=== PATIENT | female | born 1995 | race African-American/Black ===

== ENCOUNTER 2022-04-22 08:49 | Emergency (ER) | payer OTHER, SELFPAY ==
--- NOTE | ~2022-04-22 | XR_ITS ---
EXAMINATION: XR chest 2V DATE: 04/22/2022 09:48 INDICATION: Left chest pain. TECHNIQUE: Frontal and lateral views of the chest were obtained. COMPARISON: Chest 2 views 05/07/2015 FINDINGS: There is mild scarring at the lung apices. No pleural effusion or pneumothorax. The heart s ize is normal. IMPRESSION: 1. Mild scarring at the lung apices. Reviewed, dictated and finalized at location A.
[2022-04-22 08:57] VITALS: BP 125/84; PULSE 81; RESP 18; TEMP 36.9; O2SAT 100
--- NOTE | 2022-04-22 09:00 | ECG_ITS ---
Measurements Intervals [place] Rate: 78 P: 31 CT: 132 QRS: -18 QRSD: 88 T: 9 QT: 367 QTc: 420 Interpretive Statements SINUS RHYTHM NORMAL ECG NO PREVIOUS ECG AVAILABLE FOR COMPARISON Electronically Signed On 04-22-2022 11:50:49 CDT by Martínez Gonzales D.O.
--- NOTE | 2022-04-22 09:23 | ED.CHESTPAIN ---
HPI - Chest Pain General Chief Complaint: Chest Pain Stated Complaint: CP Time Seen by Provider: 04/22/22 08:54 History of Present Illness HPI narrative: 26-year-old female presenting to the emergency department for evaluation of left-sided chest pain. Patient states the left-sided chest pain started yesterday while she was at work. Describes it as a sharp chest pain that is worsened with inspiration. Patient initially attributed this to her bra being too tight but states that symptoms persisted even after removing the bra. Patient states that the symptoms did persist throughout the night and did worsen again this morning at 5 AM. Patient denies any falls or injuries. Patient denies any coughs colds or fevers. Patient does not suspect that she is . Patient is on hormone therapy. She has no prior history of PE or DVT. Patient denies any history of cancer or long car rides/plane flights. Related Data Home Medications Medication Instructions Recorded Confirmed cholecalciferol (vitamin D3) 250 250 mcg PO WEEKLY 07/23/21 02/04/22 mcg (10,000 unit) capsule Allergies Allergy/AdvReac Type Severity Reaction Status Date / Time No Known Allergies Allergy Verified 02/04/22 15:48 Review of Systems Review of Systems: CONSTITUTIONAL: Denies fever, chills, or sweats. EYES: Denies visual changes, redness, or discharge. ENT: Denies rhinorrhea, congestion, sore throat, or otalgia. CARDIOVASCULAR: See HPI RESPIRATORY: Denies cough or dyspnea. GASTROINTESTINAL: Denies abdominal pain, nausea, vomiting, or diarrhea. GENITOURINARY: Denies dysuria or hematuria. SKIN: Denies rash or itching. MUSCULOSKELETAL: Denies back pain, joint pain, or myalgia. NEUROLOGIC: Denies headache, numbness, or weakness. [facility] Past Medical History Medical History (Updated 04/22/22 @ 12:43 by Pio Toribio MD) Eczema Encounter for insertion of mirena IUD 07/07/15 Encounter for IUD removal 12/18/20 mirena removal Pneumonia Remove/insert IUD 07/18/20 mirena removal/insertion Vaginal odor Family History Family History Mother Bipolar 1 disorder Alcohol drinking problem Social History Social History (Updated 02/04/22 @ 15:50 by KARY Keene) Smoking status: Never smoker Alcohol intake: never Substance use: never Substance use type: does not use Additional living arrangements comments: Additional occupation/education comments: advisor at [employer] Gender identity (if verbalized by the patient): Female Sexual Orientation (if Verbalized by the Patient): Straight or Heterosexual Exam Narrative: APPEARANCE: Well appearing, no pain, no distress, well-nourished. HEAD: normocephalic, atraumatic. EYES: PERRLA/EOMI, conjunctivae clear. NOSE: Normal no drainage NECK: Supple. No adenopathy, no masses. RESPIRATORY: Airway patent, respirations nonlabored. Clear to auscultation bilaterally, no rales, rhonchi, wheezing. CARDIOVASCULAR: Reproducible left-sided chest wall tenderness to palpation ABDOMINAL: Soft, nontender, nondistended, normal bowel sounds MUSCULOSKELETAL: Moves all extremities. Strength/ROM intact, No edema, No calf tenderness. NEURO: Alert. Cranial nerves II through XII intact. Grossly intact SKIN: Warm, dry. Normal Color PSYCHIATRIC: Normal affect/mood. Course Course Emergency Course: Patient had negative serial troponins. Patient was afebrile with no leukocytosis. Patient's CMP is within normal limits. Patient's D-dimer was not elevated. Patient's EKG showed normal sinus rhythm and chest x-ray showed no acute cardiopulmonary normality. Patient was updated the results of her work-up and was comfortable with the plan for discharge home. Suspect pleurisy as the underlying etiology of the patient's symptoms. Vital Signs Vital signs: Vital Signs Temperature 98.5 F 04/22/22 08:57 Pulse Rate 81 04/22/22 08:57 Respiratory Rate
[2022-04-22 09:34] LABS: Basophils Absolute Auto 0.1 K/mm3 (0.0-0.1); Basophils Percent Auto 0.7 % (0.2-1.2); Eosinophils Absolute Auto 0.1 K/mm3 (0-0.3); Eosinophils Percent Auto 0.8 % (0-4.4); Hematocrit 46.8 % (37.0-47.0); Hemoglobin 15.9 g/dL (12.0-15.0); Immature Granulocyte Absolute 0.01 K/mm3 (0.00-0.031); Immature Granulocyte Percent A 0.1 % (0-0.5); Lymphocytes Absolute Auto 1.76 K/mm3 (0.9-3.2); Lymphocytes Percent Auto 24.5 % (18.3-44.2); Mean Corpuscular Hemoglobin 29.3 pg (26-34); Mean Corpuscular Volume 86.2 fl (80-100); Mean Platelet Volume 9.1 fl (7.4-10.4); Monocytes Absolute Auto 0.7 K/mm3 (0.1-0.6); Neutrophils Absolute Auto 4.6 K/mm3 (1.3-6.7); Neutrophils Percent Auto 63.9 % (45.5-73.1); Platelet Count Result 276 k/mm3 (150-375); Red Blood Count 5.43 M/mm3 (4.2-5.4); Red Cell Distribution Width 11.4 % (11.5-14.5); White Blood Count 7.2 K/mm3 (4.5-10.0)
[2022-04-22 09:45] LABS: Alanine Aminotransferase 21 U/L (6-35); Albumin Level 5.1 g/dL (3.5-5.1); Alkaline Phosphatase 87 U/L (38-126); Anion Gap 13 mmol/L (8-16); Aspartate Amino Transferase 30 U/L (14-36); Bilirubin,Total 1.1 mg/dL (0.2-1.3); Blood Urea Nitrogen 13 mg/dL (7-17); Calcium 9.6 mg/dL (8.4-10.2); Carbon Dioxide 25 mmol/L (22-30); Chloride 99 mmol/L (98-107); Estimated Glomerular Filt Rate > 60; Glucose 83 mg/dL (65-110); Lipase 50 U/L (23-300); Sodium 137 mmol/L (137-145)
[2022-04-22 09:57] LABS: Troponin I < 0.012 ng/mL (0.000-0.034)
[2022-04-22] MEDS: ASPIRIN 81 MG CHEWABLE TABLET 324 MG PO (09:57)
[2022-04-22 11:36] LABS: Prothrombin Time 12.6 Seconds (11.1-14.7)
[2022-04-22 12:02] LABS: D Dimer < 0.27 ug/mL (<0.48)
--- NOTE | 2022-04-22 12:25 | PC.NURSE ---
pul ox applied prior to this time
[2022-04-22 12:31] LABS: Troponin I < 0.012 ng/mL (0.000-0.034)
[2022-04-22] MEDS: KETOROLAC 15 MG/ML VIAL (*BKC) IV PUSH (13:03)
[2022-04-22 13:05] VITALS: BP 127/87; PULSE 65; RESP 18; O2SAT 100
[2022-04-22 13:12] VITALS: PULSE 74
== END 2022-04-22 13:14 | disposition home or self-care (01) ==
PROVIDERS: Emergency Provider Emergency Medicine; PCP Family Medicine
DX: R09.1 Pleurisy (principal); Z87.01 Personal history of pneumonia (recurrent)
CPT/HCPCS: 36415; 71046; 80053; 83690; 84484; 85025; 85380; 85610; 85730; 93005; 96374; 99284; A9270; J1885

== ENCOUNTER 2023-02-17 18:20 | Inpatient (IN) | payer OTHER, SELFPAY ==
[2023-02-17 18:50] VITALS: BP 155/91; PULSE 68
[2023-02-17 19:00] VITALS: BP 146/97; PULSE 70
[2023-02-17 19:08] LABS: Basophils Percent Auto 0.4 % (0.2-1.2); Eosinophils Absolute Auto 0.1 K/mm3 (0-0.3); Eosinophils Percent Auto 0.7 % (0-4.4); Hematocrit 38.5 % (37.0-47.0); Hemoglobin 12.8 g/dL (12.0-15.0); Immature Granulocyte Absolute 0.06 K/mm3 (0.00-0.031); Immature Granulocyte Percent A 0.6 % (0-0.5); Lymphocytes Absolute Auto 1.54 K/mm3 (0.9-3.2); Lymphocytes Percent Auto 15.7 % (18.3-44.2); Mean Corpuscular HGB Conc 33.2 g/dl (32-36); Mean Corpuscular Volume 84.2 fl (80-100); Mean Platelet Volume 11.2 fl (7.4-10.4); Monocytes Absolute Auto 0.9 K/mm3 (0.1-0.6); Neutrophils Absolute Auto 7.2 K/mm3 (1.3-6.7); Neutrophils Percent Auto 73.6 % (45.5-73.1); Platelet Count Result 205 k/mm3 (150-375); Red Blood Count 4.57 M/mm3 (4.2-5.4); Red Cell Distribution Width 12.6 % (11.5-14.5); White Blood Count 9.8 K/mm3 (4.5-10.0)
[2023-02-17 19:09] LABS: Creatinine Urine 48.8 mg/dL; Total Protein Urine Random 26 mg/dL; Ur Ttl Prot Creatinine Ratio 0.53 mg/mg (0-0.20)
[2023-02-17 19:15] VITALS: BP 151/103; PULSE 80
[2023-02-17 19:17] LABS: Alanine Aminotransferase 15 U/L (6-35); Albumin Level 3.3 g/dL (3.5-5.1); Alkaline Phosphatase 228 U/L (38-126); Anion Gap 7 mmol/L (8-16); Aspartate Amino Transferase 21 U/L (14-36); Bilirubin,Total 0.3 mg/dL (0.2-1.3); Blood Urea Nitrogen 10 mg/dL (7-17); Calcium 8.7 mg/dL (8.4-10.2); Carbon Dioxide 20 mmol/L (22-30); Chloride 105 mmol/L (98-107); Estimated Glomerular Filt Rate > 60; Glucose 80 mg/dL (65-110); Sodium 132 mmol/L (137-145); Uric Acid 4.8 mg/dL (2.5-7.5)
[2023-02-17 19:30] VITALS: BP 147/96; PULSE 73
[2023-02-17 19:44] LABS: Appearance Urine Clear (Clear); Bacteria Urine None Seen /hpf; Bilirubin Urine Negative (Negative); Blood Urine Negative (Negative); Color Urine Yellow (Yellow); Glucose Urine UA Negative (Negative); Ketones Urine Negative (Negative); Leukocyte Esterase Ur Negative LEU/UL (NEGATIVE); Nitrate Urine Negative (Negative); Non Pathogenic Casts 0-2; Protein Urine Trace mg/dL (Negative); RBC Urine 0-2 /hpf (0-2); Specific Grav Ur 1.009 (1.001-1.035); Squamous Epithelial Cell Urine None seen /hpf (Few); Urobilinogen Urine 0.2 mg/dL (<2.0); WBC Urine 0-5 /hpf (0-3); pH Urine 6.5 (5.0-9.0)
[2023-02-17 19:45] VITALS: BP 142/102; PULSE 85
[2023-02-17 20:17] LABS: Add Urine Microscopic? YES
[2023-02-17] MEDS: DINOPROSTONE 10 MG VAG INSERT VAGINAL (22:59)
[2023-02-18] VITALS (190 sets, daily range): BP systolic 72–171; BP diastolic 37–145; PULSE 29–195; RESP 17–18; TEMP 36.4–37.4; O2SAT 83–100
--- NOTE | 2023-02-18 05:37 | LDADM ---
This patient, Pricilla Slater, was admitted to Labor/Delivery/Recovery 109 on 02/17/23 at 18:20. Plans for labor, pain management and were discussed with patient. Patient/family oriented to hospital policies and general routines including ID bracelet, bed and alarms, visiting hours, pain management, procedures, bathroom and other care routines, personal items, smoking policy, room service/diet and guest tray routines, security routines, and visiting hours. Patient/Family are encouraged to report perceived risks to care and to ask questions if they do not understand what they are told or what they should do. See OBIX for further documentation.
--- NOTE | 2023-02-18 06:01 | WPDANESEPP ---
Anes - Eval Pre Procedure Procedure: Labor epidural Date/Time: 02/18/23 06:01 Surgeon: Castro Preop Diagnosis: Abdominal pain with contractions Pre Op Diagnosis: Elevated BP Patient Data Age: 27 Gender: F Height: Weight: Last Vital Signs Pulse 81 02/18/23 06:00 BP 128/94 H 02/18/23 06:00 Allergies Allergy/AdvReac Type Severity Reaction Status Date / Time No Known Allergies Allergy Verified 02/17/23 17:30 Home Medications Medication Instructions Recorded Confirmed Type vitamins-iron fumarate 65 1 tablet PO DAILY 08/04/22 02/13/23 History mg iron-folic acid 1 mg tablet Laboratory Tests 02/17/23 02/17/23 18:50 22:48 WBC 9.8 K/mm3 (4.5-10.0) RBC 4.57 M/mm3 (4.2-5.4) Hgb 12.8 D g/dL (12.0-15.0) Hct 38.5 % (37.0-47.0) MCV 84.2 fl (80-100) MCH 28.0 pg (26-34) MCHC 33.2 g/dl (32-36) RDW 12.6 % (11.5-14.5) Plt Count 205 k/mm3 (150-375) MPV 11.2 H fl (7.4-10.4) Immature Gran % (Auto) 0.6 H % (0-0.5) Neut % (Auto) 73.6 H % (45.5-73.1) Lymph % (Auto) 15.7 L % (18.3-44.2) [place] % (Auto) 9.0 H % (2.6-8.5) Eos % (Auto) 0.7 % (0-4.4) Baso % (Auto) 0.4 % (0.2-1.2) Lymph # (Auto) 1.54 K/mm3 (0.9-3.2) [place] # (Auto) 0.9 H K/mm3 (0.1-0.6) Eos # (Auto) 0.1 K/mm3 (0-0.3) Baso # (Auto) 0.0 K/mm3 (0.0-0.1) Abs Immat Gran (auto) 0.06 H K/mm3 (0.00-0.031) Absolute Neuts (auto) 7.2 H K/mm3 (1.3-6.7) Absolute Nucleated RBC 0.0 K/mm3 (0.0-0.012) Nucleated RBC % 0.0 % (0.0-0.2) Sodium 132 L mmol/L (137-145) Potassium 4.0 mmol/L (3.4-5.0) Chloride 105 mmol/L (98-107) Carbon Dioxide 20 L mmol/L (22-30) Anion Gap 7 L mmol/L (8-16) BUN 10 mg/dL (7-17) Creatinine 0.50 L mg/dL (0.7-1.0) Estim Creat Clear Calc Not Reportable Estimated GFR > 60 (59 - ) Glucose 80 mg/dL (65-110) Uric Acid 4.8 mg/dL (2.5-7.5) Calcium 8.7 mg/dL (8.4-10.2) Total Bilirubin 0.3 mg/dL (0.2-1.3) AST 21 U/L (14-36) ALT 15 U/L (6-35) Alkaline Phosphatase 228 H U/L (38-126) Total Protein 6.0 L g/dL (6.3-8.2) Albumin 3.3 L g/dL (3.5-5.1) Urine Color Yellow (Yellow) Urine Appearance Clear (Clear) Urine pH 6.5 (5.0-9.0) Ur Specific [place] 1.009 (1.001-1.035) Urine Protein Trace mg/dL (Negative) Urine Glucose (UA) Negative mg/dL (Negative) Urine Ketones Negative mg/dL (Negative) Ur Blood (Man) Negative (Negative) Urine Nitrate Negative (Negative) Urine Bilirubin Negative (Negative) Urine Urobilinogen 0.2 mg/dL (<2.0) Ur Leukocyte Esterase Negative [place]/UL (NEGATIVE) Urine RBC 0-2 /hpf (0-2) Urine WBC 0-5 /hpf (0-3) Ur Squamous Epith Cells None seen /hpf (Few) Urine Bacteria None seen /hpf Urine Casts 0-2 U Random Total Protein 26 mg/dL Urine Creatinine 48.8 mg/dL Protein/Creat Ratio 2 0.53 H mg/mg (0-0.20) RPR Pending Blood Type B Positive Antibody Screen Negative : gestational age HCG: positive Patient hx anesthesia problems: none Family hx anesthesia problems: none Results Review: All pre-operative results and documents have been reviewed as part of the pre-operative evaluation. [facility] Past Medical History Medical History Abnormal glucose tolerance in Eczema Encounter for insertion of mirena IUD 07/07/15 Encounter for IUD removal 12/18/20 mirena removal Overweight (BMI 25.0-29.9) Pneumonia and not yet delivered Remove/insert IUD 07/18/20 mirena removal/inser
[2023-02-18] MEDS: OXYTOCIN 30 UNITS/NS 500 ML 30 UNITS/500 ML BAG 6 UNITS IV CONT (07:13)
[2023-02-18] MEDS: LACTATED RINGERS 1,000 ML 125 ML IV CONT ×2 (07:13→10:30)
[2023-02-18] MEDS: AMPICILLIN 2 GM/NS 100 ML 2 GM/100 ML BAG IVPB (07:14)
[2023-02-18] MEDS: PHENYLEPHRINE 1,000 MCG/10 ML SYRINGE 100 MCG IV PUSH ×2 (10:04→10:12)
[2023-02-18] MEDS: AMPICILLIN 1 GM/NS 50 ML 1 GM/50 ML BAG IVPB ×2 (11:00→15:18)
[2023-02-18] MEDS: SODIUM CHLORIDE 0.9% IV 300 ML 600 ML I-UTERINE (11:35)
[2023-02-18 14:34] LABS: Rapid Plasma Reagin Non-Reactive (NonReactive)
--- NOTE | 2023-02-18 18:56 | WPDHPUPDATE1 ---
History and Physical Update Update Date/Time: 02/18/23 18:56 History and Physical has been reviewed, including an updated exam of the patient. There are NO changes in the patient's condition. Risks, benefits, and alternatives have been discussed and questions answered. Patient agrees to proceed with procedure.
--- NOTE | 2023-02-18 18:56 | WPDOBADMIT ---
Obstetrics - Admit Note Admission Note: record reviewed. No pertinent additions to the history and/or any subsequent changes in the physical findings that are not consistent with the expected course of the were found. Additions to the history and/or subsequent changes in the physical findings follow. None.
--- NOTE | 2023-02-18 18:56 | PM.OBPRVD ---
OB - Delivery Note Procedure Events: Preeclampsia w/o severe features Induction method: Per Cervidil Protocol Delivery augmentation: Rupture of Membranes and Pitocin Delivery monitor: External FHT and Internal Uterine Route of delivery: Episiotomy description: None Laceration Description: None Specimen: Yes Quantitative Blood Loss (ml): 200 Anesthesia type: Epidural Disposition: Floor Complications: None Narrative: patient prepped and draped in usual manner for this procedure. Maternal expulsive efforts readily delivered vertex, rest of baby delivered without difficulty. Cord clamped cut baby was passed off the operative field. Placenta delivered spontaneously and uterus was well contracted. Cervix vagina vulva were inspected no significant lacerations or tears but some mild oozing from the vaginal wall which was rendered hemostatic with pressure and packing. At this point the procedure was considered terminated with immediate postoperative condition of mother baby both excellent. Baby Weeks of gestation at delivery: 37 gender: Male Weight (pounds): 6 Weight (ounces): 1 presentation: vertex position: Right Occiput Anterior Placenta delivery description: Spontaneous Cord Vessel Description: 3 Vessels score one minute: 5 score five minutes: 8 AMG Delivery Billing Delivery Delivery: Delivery Charge
[2023-02-18] MEDS: OXYTOCIN 30 UNITS/NS 500 ML 30 UNITS/500 ML BAG 125 UNITS IV CONT (19:18)
[2023-02-18] MEDS: LABETALOL HCL 100 MG TABLET PO (19:46)
[2023-02-18] MEDS: IBUPROFEN 600 MG TABLET PO (23:09)
[2023-02-19] VITALS (7 sets, daily range): BP systolic 117–136; BP diastolic 74–99; PULSE 64–93; RESP 14–18; TEMP 36.6–37.2; O2SAT 99–100
[2023-02-19 03:39] LABS: Hemoglobin 11.6 g/dL (12.0-15.0)
--- NOTE | 2023-02-19 08:31 | PM.OBDSVD ---
DS: Admitting Diagnosis Discharge Date 02/20/2023 Admitting Diagnosis 37 week intrauterine with mild preeclampsia DS: Discharge Diagnosis Discharge Diagnosis (1) , delivered: Code(s): O80 - Encounter for full-term uncomplicated delivery Status: Acute OB - DS: Summary OB Procedures : PIH Mgmt OB Procedures Intrapartum: Spontaneous Vag Delivery OB Procedures: : None Time Spent with Patient Time attestation: Total time spent providing and/or coordinating discharge services: DS: Data Data Completed and Pending Pending studies at discharge: Pending at discharge 02/18/23 18:46 Surgical [PTH] Routine Labs on day of discharge: Labs from last 24 hours 02/19/23 02/17/23 03:28 22:48 Hgb 11.6 L Hct 35.0 L RPR Non-reactive Discharge Plan Discharge Discharging Clinician: Gael Erazo Anticipated Discharge Date/Time: 02/20/23 08:32 Patient Disposition: Home, Self-Care Activity: as tolerated Diet: as tolerated Patient Instructions: Antibiotic Form Stand Alone Forms: General Discharge Information Follow-up/Referrals: Gael Erazo MD [Physician] - 1 Week Discharge Medications: New ibuprofen 600 mg Tablet 600 mg PO Q6H PRN (Reason: Cramping) Qty: 30 0RF labetalol 100 mg Tablet 100 mg PO Q12H Qty: 60 0RF Continued vit-iron fum-folic ac 65 mg iron- 1 mg tablet 1 tablet PO DAILY Date of admission: 02/17/23 18:20 Primary Care Provider: UNKNOWN,DOCTOR Admitting Provider: Gael Erazo Attending physician on admission: Gael Erazo Condition: Stable
[2023-02-19] MEDS: IBUPROFEN 600 MG TABLET PO (09:47)
[2023-02-19] MEDS: MULTIVIT/MIN/PREN/FOL AC/IRON TABLET 1 TAB PO (09:47)
[2023-02-19] MEDS: LABETALOL HCL 100 MG TABLET PO ×2 (09:48→21:46)
--- NOTE | 2023-02-19 10:17 | WPDANLDPN2 ---
Anes-Prog Note L&D Date/Time: 02/19/23 10:17 Comfortable throughout: labor and delivery Neuraxial method: epidural Epidural/Spinal procedure site: tender Neuro status: Neuro function grossly intact. Cardiovascular status: normal Respiratory status: normal Airway patency: baseline Mental status: baseline Post-Op hydration status: normal Vital Signs: Last Vital Signs Temp 37.0 C 02/19/23 04:13 Pulse 64 02/19/23 09:48 Resp 14 02/19/23 04:13 BP 127/82 02/19/23 04:13 Pulse Ox 99 02/19/23 04:13 O2 Del Method Room Air 02/18/23 22:05 Pain score (VAS): 2/10 I/O: Intake & Output 02/18/23 02/19/23 02/19/23 23:59 07:59 15:59 Intake Total 500 500 Output Total 2017 500 Balance -1518 0 Post-procedural complaints: none Patient feedback: Patient satisfied with anesthetic care.
--- NOTE | 2023-02-19 13:46 | PC.NURSE ---
1100 Introductions were made, then consulted with patient to assess needs related to . Mother led the conversation with her?plans to feed?her and the?experience so far. Mother works well with her with encouragement and education. Encouraged understanding of the benefits of skin to skin (demonstrating unwrapping and placing upright on her chest), stimulating with massage touch, changing positions to encourage wakefulness, how to watch for early feeding cues, responsive feeding, feeding on demand (aiming for 8-12 times in 24 hours, about every 2-3 hours), milk production, building/maintaining a milk supply, duration of feeding, signs of adequate intake/output and how to record on the feeding sheet. Reviewed positioning and ear, shoulder, hip alignment, supporting the breast to facilitate a deep latch, asymmetrical latch (off-center), leading with the chin with a big, open, wide gape and body close to mother. Infant latched optimally to the both breasts in football position although the cross cradle position was attempted. Infant fed successfully for 20 minutes. Education given to mother of how to visualize suck/swallow ratios and listen for drinking at the breast. was able to maintain latch without discomfort to mother. Nipple care reviewed with optimal latch and good positioning. Reminding mother of comfort measures of healing with a warm and wet washcloth to rinse breast, then leave open to air-dry as needed. Reviewed good handwashing when or touching the breast/nipples to prevent infection. Resources used to facilitate learning were used with the visual handouts and mom and baby guide. Mother voiced understanding of skin to skin, stimulating with massage touch, responsive feedings, hand expressed colostrum, talking to infant to encourage if it has been 2 -2.5 hours since the start of the last , to call if infant does not latch, or if there is discomfort with . Resources provided for inpatient/outpatient with business card, feeding sheet and the mom/baby guide. Parents voiced understanding of information, demonstrated learning and will call if there is a request for assistance. Reported to primary RN.
--- NOTE | 2023-02-19 15:58 | PCDIET ---
1500 Assisted mother with proper latch on techniques for 1500 feeding. Mother is able to independently latch infant with appropriate positioning/alignment. She denies any nipple discomfort and is responsively . is currently meeting outcomes for weight, output, jaundice and feeding frequencies of 8-12 times in 24 hours. Mother is encouraged to call for assistance if her infant doesn?t latch or there is discomfort with latching. Mother voiced understanding of information shared and the mom reminded of the mom/baby guide for an additional resource. Reported to the primary RN.
[2023-02-20] VITALS: BP 122/61; PULSE 75; RESP 18; TEMP 36.8
[2023-02-20] MEDS: IBUPROFEN 600 MG TABLET PO (04:44)
[2023-02-20] MEDS: ACETAMINOPHEN 325 MG TABLET 650 MG PO (04:45)
[2023-02-20 04:57] VITALS: BP 128/70; PULSE 63; RESP 18; TEMP 36.7
[2023-02-20 08:50] VITALS: BP 129/78; PULSE 73; RESP 16; TEMP 36.2; O2SAT 99
[2023-02-20 10:28] VITALS: PULSE 73
[2023-02-20] MEDS: MULTIVIT/MIN/PREN/FOL AC/IRON TABLET 1 TAB PO (10:28)
[2023-02-20] MEDS: LABETALOL HCL 100 MG TABLET PO (10:28)
[2023-02-20 12:45] VITALS: BP 131/78; PULSE 64; RESP 16; TEMP 37; O2SAT 99
--- NOTE | 2023-02-20 13:57 | PC.NURSE ---
[id number] Introductions were made, then consulted with patient to assess needs related to . Mother led the conversation with her?plans to feed?her infant and the?experience so far. Resources provided for inpatient and outpatient services with the feeding sheet, mom/baby guide and name written on the white board. Mother voiced understanding of information and will call if there is a request for assistance. Reported to the primary RN. [id number] Consulted with patient to assess needs related to . Reviewed working with infant, supporting breast and how to protect the nipples with an optimal deep latch, good positioning, and good hand washing. Encouraged understanding the benefits of skin to skin, responding to feeding cues, frequencies of feeding 8-12 times in 24 hours (approximately 2-3 hours), duration of feedings, milk production, intake/output feeding sheet and signs of adequate intake encouraging swallowing at the breast. Reviewed positioning and alignment, supporting breast, off-centered (asymmetrical latch) and leading with the chin with big, open, wide gape. latched optimally to the right breast in cross cradle position. Education given to parents of how to visualize suck/swallow and listen for drinking at the breast. was able to maintain latch without discomfort to mother. Nipple care reviewed with optimal latch, good positioning and using clean hands when feeding her infant and touching her breast. Mother led the conversation with her experience and plan to feed her so far and her ability to independently latch infant optimally without discomfort. Reminded parents to use good handwashing technique to prevent infection. Mother is feeding appropriately for growth of infant and understands stimulating to eat if needed. has had appropriate feedings in the last 24 hours meets the outcomes for weight, output and jaundice at this time. Mother states she is confident to continue effectively her infant at home, when to call for assistance and denies any additional assistance or education at this time. Reinforced understanding of milk production, transition of milk, signs of adequate intake, transition of stool, prevention/relief of engorgement, plugged ducts, mastitis, responsive watching for feeding cues, the different methods of stimulating to breastfeed 2-3 hours after the start of the last feeding, community resources and when to call a provider using the resource of the mom and baby guide. Resources used to facilitate learning were used from the visual handout/ tool/mom and baby guide. Parents voiced understanding of the education shared, to call for assistance if the infant does not latch or if there is discomfort with . Reported to the primary RN.
--- NOTE | 2023-02-20 15:13 | PC.NURSE ---
[id number] Consulted with patient to assess needs related to . Mother works well with her infant demonstrating the understanding of skin-to skin benefits. Reviewed working with infant, supporting breast and how to protect the nipples with an optimal deep latch and good positioning. Reviewed positioning and alignment, supporting breast, off-centered (asymmetrical latch) and leading with the chin with big, open, wide gape. latched optimally to the left breast in cross cradle position. Education given to mother of how to visualize suck/swallow ratios and listen for drinking at the breast. was able to maintain latch without discomfort to mother. Nipple care reviewed with optimal latch, good positioning and using clean hands when feeding her and touching her breast. Mother voiced understanding of the education shared, to call for assistance if the does not latch or if there is discomfort with . Reported to the primary RN.
[2023-02-20] MEDS: MEASLES,MUMPS,RUBELLA VACCINE 0.5 ML VIAL SUB-Q (15:18)
[2023-02-21 09:47] VITALS: BP 140/87; PULSE 68; RESP 18; TEMP 36.5; O2SAT 100
== END 2023-02-20 16:05 | disposition home or self-care (01) | DRG 807 ==
LOC: ANHOBOP 18:23 → ANHOBPP 18:23 → ANHOBOP 21:40 → ANHLDR 21:40 → ANHOB2 02-18 22:33
PROVIDERS: Admitting Provider Obstetrics & Gynecology; Visit Provider Obstetrics & Gynecology
DX: O14.04 Mild to moderate pre-eclampsia, complicating childbirth (principal); Z37.0 Single live birth; Z3A.37 37 weeks gestation of pregnancy; O13.4 Gestational [pregnancy-induced] hypertension without significant proteinuria, complicating childbirth
CPT/HCPCS: 36415; 80053; 81001; 82570; 84156; 84550; 85014; 85018; 85025; 86592; 86850; 86900; 86901; 87086; 88307; 90710; A9270; J0290; J2371; J2590; J2795; J7030; J7120

== ENCOUNTER 2024-01-29 10:21 | Outpatient (CLI) | payer OTHER, SELFPAY ==
--- NOTE | ~2024-01-29 | US_ITS ---
EXAMINATION: US OB <= 14 weeks fetus DATE: 01/29/2024 10:36 INDICATION: Amenorrhea, unspecified. TECHNIQUE: Real-time transabdominal pelvic ultrasound was performed. COMPARISON: None. FINDINGS: The uterus measures 11.9 x 7.9 x 4.4 cm. There is an intrauterine gestational sac. A yolk sac is iden tified. The crown rump length measures 2.4 cm, which correlates with an estimated gestational age of 9 weeks and 0 day(s) (+/-) 6 day(s). heart motion is identified measuring 165 beats per minute (bpm) by M-mode Doppler. The right ovary is not visualized. The left ovary measures 2.7 x 2.2 x 2.2 cm. There is no free fluid in the pelvis. IMPRESSION: 1. Single living intrauterine gestation with estimated date of delivery of 09/02/2024. Reviewed, dictated and finalized at location A. IMPRESSION: 1. Single living intrauterine gestation with estimated date of delivery of 08/20.
== END 2024-01-29 10:22 ==
LOC: GOSHIMG 10:22
PROVIDERS: PCP Obstetrics & Gynecology; Visit Provider Obstetrics & Gynecology
DX: N91.2 Amenorrhea, unspecified (principal)
CPT/HCPCS: 76801

== ENCOUNTER 2024-04-08 14:19 | Outpatient (CLI) | payer OTHER, SELFPAY ==
--- NOTE | ~2024-04-08 | US_ITS ---
EXAMINATION: US OB /maternal detail DATE: 04/08/2024 14:49 INDICATION: Encounter for supervision abnormal . survey. TECHNIQUE: Multiple obstetric sonographic images performed. FINDINGS: Comparison to ultrasound dated 01/29/2024 There is a single living fetus in transverse, maternal left presentation. The placenta is anterior w ithout placenta previa. Amniotic fluid volume is subjectively normal. cardiac activity and movement is noted with a heart rate of 135 beats per minute. The following anatomy was identified as normal: 4 chamber heart 3 vessel cord cord insertion kidneys urinary bladder stomach spine diaphragm ventricles cisterna magna cerebellum The following biometric data were obtained: BPD: 46mm corresponds to gestational age 20 weeks 0 days. Head circumference: 170 mm corresponds to gestational age 19 weeks 4 days. Abdominal circumference: 135 mm corresponds to gestational age 19 weeks 0 days. Femur length: 29 mm corresponds to gestational age 18 weeks 6 days. Head circumference to abdominal circumference ratio: 1.26 (normal range for expected gestational age is 1.08-1.26). Estimated weight: 268 grams +/- 40 grams using Hadlock method. IMPRESSION: 1: Single living intrauterine with an estimated gestational age of 19weeks 0days by initial ultrasound measurements, with an EDC of 09/02/2024 in transverse presentation. 2. Normal survey. Reviewed, dictated and finalized at location B. IMPRESSION: 1: Single living intrauterine with an estimated gestational age of 19 weeks 0days by initial ultrasound measurements, with an EDC of 09/02/2024 in tra nsverse presentation. 2. Normal survey.
== END 2024-04-08 14:20 | disposition home or self-care (01) ==
LOC: GOSHIMG 14:20
PROVIDERS: PCP Obstetrics & Gynecology; Visit Provider Obstetrics & Gynecology
DX: Z36.9 Encounter for antenatal screening, unspecified (principal); Z34.82 Encounter for supervision of other normal pregnancy, second trimester; Z3A.00 Weeks of gestation of pregnancy not specified
CPT/HCPCS: 76805

== ENCOUNTER 2024-08-16 18:30 | Outpatient (CLI) | payer OTHER, SELFPAY ==
[2024-08-16] VITALS (12 sets, daily range): BP systolic 135–147; BP diastolic 97–99; PULSE 77–93; O2SAT 99–100; BMI 31.5
--- NOTE | 2024-08-16 18:30 | PC.NURSE ---
Pt arrives to unit with elevated blood pressures in the office.
[2024-08-16 19:11] LABS: Basophils Percent Auto 0.5 % (0.2-1.2); Eosinophils Percent Auto 0.5 % (0-4.4); Hematocrit 35.8 % (37.0-47.0); Hemoglobin 11.5 g/dL (12.0-15.0); Immature Granulocyte Absolute 0.05 K/mm3 (0.00-0.031); Immature Granulocyte Percent A 0.6 % (0-0.5); Lymphocytes Absolute Auto 1.85 K/mm3 (0.9-3.2); Lymphocytes Percent Auto 21.3 % (18.3-44.2); Mean Corpuscular HGB Conc 32.1 g/dl (32-36); Mean Corpuscular Hemoglobin 26.4 pg (26-34); Mean Corpuscular Volume 82.3 fl (80-100); Mean Platelet Volume 10.8 fl (7.4-10.4); Monocytes Absolute Auto 0.8 K/mm3 (0.1-0.6); Monocytes Percent Auto 9.2 % (2.6-8.5); Neutrophils Absolute Auto 5.9 K/mm3 (1.3-6.7); Neutrophils Percent Auto 67.9 % (45.5-73.1); Platelet Count Result 186 k/mm3 (150-375); Red Blood Count 4.35 M/mm3 (4.2-5.4); Red Cell Distribution Width 12.9 % (11.5-14.5); White Blood Count 8.7 K/mm3 (4.5-10.0)
[2024-08-16 19:13] LABS: Add Urine Microscopic? YES; Appearance Urine Clear (Clear); Bacteria Urine None Seen /hpf; Bilirubin Urine Negative (Negative); Blood Urine Trace (Negative); Color Urine Yellow (Yellow); Glucose Urine UA Negative (Negative); Ketones Urine Negative (Negative); Leukocyte Esterase Ur Negative LEU/UL (Negative); Nitrate Urine Negative (Negative); Non Pathogenic Casts 0-2; Protein Urine Trace mg/dL (Negative); RBC Urine 0-2 /hpf (0-2); Specific Grav Ur 1.008 (1.001-1.035); Squamous Epithelial Cell Urine None Seen /hpf (Few); Urobilinogen Urine 0.2 mg/dL (<2.0); WBC Urine 0-5 /hpf (0-3); pH Urine 6.5 (5.0-9.0)
[2024-08-16 19:22] LABS: Alanine Aminotransferase 14 U/L (6-35); Albumin Level 3.3 g/dL (3.5-5.1); Alkaline Phosphatase 241 U/L (38-126); Anion Gap 8 mmol/L (4-12); Aspartate Amino Transferase 20 U/L (14-36); Bilirubin,Total 0.2 mg/dL (0.2-1.3); Blood Urea Nitrogen 7 mg/dL (7-17); Carbon Dioxide 20 mmol/L (22-30); Chloride 106 mmol/L (98-107); Estimated Glomerular Filt Rate > 60; Glucose 86 mg/dL (65-110); Potassium 3.8 mmol/L (3.4-5.0); Sodium 134 mmol/L (137-145); Uric Acid 4.1 mg/dL (2.5-7.5)
[2024-08-16 19:30] LABS: Creatinine Urine 31.5 mg/dL; Total Protein Urine Random 33 mg/dL; Ur Ttl Prot Creatinine Ratio 1.05 mg/mg (0-0.20)
--- NOTE | 2024-08-16 19:48 | PC.NURSE ---
Called Dr. Erazo, update on pt, blood pressure, labs, headache, swelling, and contractions. Orders received to admit pt to labor, administer low dose pitocin at 2200, tylenol 1000 mg for headache every four to six hours as needed, update at 0530 with cervical exam.
== END 2024-08-16 19:57 | disposition home or self-care (01) ==
LOC: ANHOBOP 18:34 → ANHOBPP 18:36
PROVIDERS: PCP Obstetrics & Gynecology; Visit Provider Obstetrics & Gynecology
DX: O13.9 Gestational [pregnancy-induced] hypertension without significant proteinuria, unspecified trimester (principal); Z3A.00 Weeks of gestation of pregnancy not specified
CPT/HCPCS: 36415; 59025; 80053; 81001; 82570; 84156; 84550; 85025; 99199

== ENCOUNTER 2024-08-16 20:00 | Inpatient (IN) | payer OTHER, SELFPAY ==
[2024-08-16] VITALS (49 sets, daily range): BP systolic 128–143; BP diastolic 82–94; PULSE 67–99; TEMP 37; O2SAT 98–100; BMI 31.5
--- NOTE | 2024-08-16 20:18 | LDADM ---
This patient, Pricilla Slater, was admitted to Labor/Delivery/Recovery 103 on 08/16/24 at 20:00. Plans for labor, pain management and were discussed with patient. Patient/family oriented to hospital policies and general routines including ID bracelet, bed and alarms, visiting hours, pain management, procedures, bathroom and other care routines, personal items, smoking policy, room service/diet and guest tray routines, security routines, and visiting hours. Patient/Family are encouraged to report perceived risks to care and to ask questions if they do not understand what they are told or what they should do. See OBIX for further documentation.
[2024-08-16 20:40] LABS: Basophils Percent Auto 0.4 % (0.2-1.2); Eosinophils Absolute Auto 0.1 K/mm3 (0-0.3); Eosinophils Percent Auto 0.5 % (0-4.4); Hematocrit 37.5 % (37.0-47.0); Hemoglobin 12.2 g/dL (12.0-15.0); Immature Granulocyte Absolute 0.06 K/mm3 (0.00-0.031); Immature Granulocyte Percent A 0.6 % (0-0.5); Lymphocytes Absolute Auto 1.98 K/mm3 (0.9-3.2); Lymphocytes Percent Auto 20.7 % (18.3-44.2); Mean Corpuscular HGB Conc 32.5 g/dl (32-36); Mean Corpuscular Hemoglobin 26.8 pg (26-34); Mean Corpuscular Volume 82.2 fl (80-100); Mean Platelet Volume 11.2 fl (7.4-10.4); Monocytes Absolute Auto 0.9 K/mm3 (0.1-0.6); Monocytes Percent Auto 8.9 % (2.6-8.5); Neutrophils Absolute Auto 6.6 K/mm3 (1.3-6.7); Neutrophils Percent Auto 68.9 % (45.5-73.1); Platelet Count Result 198 k/mm3 (150-375); Red Blood Count 4.56 M/mm3 (4.2-5.4); Red Cell Distribution Width 13.1 % (11.5-14.5); White Blood Count 9.6 K/mm3 (4.5-10.0)
[2024-08-16 21:32] LABS: HIV 1/2 Ab P24 Ag Result Negative (Negative)
[2024-08-16] MEDS: LACTATED RINGERS 1,000 ML 125 ML IV CONT (22:15)
[2024-08-16 22:16] LABS: Syphilis IgG/IgM Antibody Negative (Negative)
[2024-08-16] MEDS: OXYTOCIN 30 UNITS/NS 500 ML 30 UNITS/500 ML BAG IV CONT (22:17)
[2024-08-16] MEDS: ACETAMINOPHEN 500 MG TABLET 1000 MG PO (23:08)
[2024-08-17] VITALS (273 sets, daily range): BP systolic 83–169; BP diastolic 32–131; PULSE 54–202; RESP 16–18; TEMP 36.2–37.1; O2SAT 96–100
[2024-08-17] MEDS: LACTATED RINGERS 1,000 ML 125 ML IV CONT (05:40)
--- NOTE | 2024-08-17 06:41 | P.PNAN_ITS ---
Anes - Eval Pre Procedure Procedure: Labor Epidural Date/Time: 08/17/24 06:41 Preop Diagnosis: Labor Pain Pre Op Diagnosis: PIH/IOL Patient Data Age: 29 Gender: F Height: 1.57 m Weight: 78.2 kg Last Vital Signs Temp 36.2 C L 08/17/24 04:52 Pulse 68 08/17/24 06:31 BP 145/89 H 08/17/24 06:31 Pulse Ox 100 08/17/24 06:39 O2 Del Method Room Air 08/16/24 20:40 Allergies Allergy/AdvReac Type Severity Reaction Status Date / Time No Known Allergies Allergy Verified 08/16/24 19:00 Home Medications ?Medication ?Instructions ?Recorded ?Confirmed ?Type vitamins-iron fumarate 65 1 tablet PO DAILY 08/04/22 08/16/24 History mg iron-folic acid 1 mg tablet Laboratory Tests 08/16/24 08/16/24 20:31 20:33 WBC 9.6 K/mm3 (4.5-10.0) RBC 4.56 M/mm3 (4.2-5.4) Hgb 12.2 g/dL (12.0-15.0) Hct 37.5 % (37.0-47.0) MCV 82.2 fl (80-100) MCH 26.8 pg (26-34) MCHC 32.5 g/dl (32-36) RDW 13.1 % (11.5-14.5) Plt Count 198 k/mm3 (150-375) MPV 11.2 H fl (7.4-10.4) Immature Gran % (Auto) 0.6 H % (0-0.5) Neut % (Auto) 68.9 % (45.5-73.1) Lymph % (Auto) 20.7 % (18.3-44.2) [place] % (Auto) 8.9 H % (2.6-8.5) Eos % (Auto) 0.5 % (0-4.4) Baso % (Auto) 0.4 % (0.2-1.2) Lymph # (Auto) 1.98 K/mm3 (0.9-3.2) [place] # (Auto) 0.9 H K/mm3 (0.1-0.6) Eos # (Auto) 0.1 K/mm3 (0-0.3) Baso # (Auto) 0.0 K/mm3 (0.0-0.1) Abs Immat Gran (auto) 0.06 H K/mm3 (0.00-0.031) Absolute Neuts (auto) 6.6 K/mm3 (1.3-6.7) Absolute Nucleated RBC 0.000 K/mm3 (0.0-0.012) Nucleated RBC % 0.0 % (0.0-0.2) Syphilis IgG/IgM Ab Negative (Negative) RPR Titer Cancelled RPR Cancelled RPR Titer Add Testing Cancelled T.pallidum Ab (FTA-ABS) Cancelled T.pall Ab(FTA-ABS)Reflex Cancelled HIV 1&2 Ab/P24 Ag 4thGn Negative (Negative) Blood Type B Positive Antibody Screen Negative Patient hx anesthesia problems: none Family hx anesthesia problems: none Results Review: All pre-operative results and documents have been reviewed as part of the pre- operative evaluation. REPLACED BY [facility] Past Medical History Medical History Overweight (BMI 25.0-29.9) and not yet delivered Abnormal glucose tolerance in Vaginal odor Encounter for IUD removal 12/18/20 mirena removal Encounter for insertion of mirena IUD 07/07/15 Remove/insert IUD 07/18/20 mirena removal/insertion Pneumonia Eczema Family History Family History Mother Alcohol drinking problem Hypertension Social History Social History Smoking status: Never smoker Second hand tobacco smoke exposure: No Alcohol intake: never Substance use: never Substance use type: does not use Do You Feel Safe in your Home?: Yes Lack of Transportation: No Lack of Food: Never True Current Housing: I Have Housing Concerned About Future Housing: No Difficulty Paying Gas/Electric Bills: No Difficulty Paying for Meds: No Currently Unemployed: No Education: Master's Degree or Higher Difficulty w/ Childcare or Family Care: No Living arrangements: with family Additional living arrangements comments: Occupation/Education: occupation Additional occupation/education comments: advisor at [employer] Gender identity (if verbalized by the patient): Female Sexual Orientation (if Verbalized by the Patient): Straight or Heterosexual Spiritual care concerns: No Exam Day of Procedure 08/17/24 06:41 Patient weight: normal Heart: regular rate and rhythm Lungs: normal air movement Airway: Mallampati scale class II Neurological: alert and oriented
[2024-08-17] MEDS: ACETAMINOPHEN 500 MG TABLET 1000 MG PO (08:04)
--- NOTE | 2024-08-17 09:30 | WPDHPUPDATE1 ---
History and Physical Update Update Date/Time: 08/17/24 09:30 History and Physical has been reviewed, including an updated exam of the patient. There are NO changes in the patient's condition. Risks, benefits, and alternatives have been discussed and questions answered. Patient agrees to proceed with procedure.
--- NOTE | 2024-08-17 09:31 | PM.OBPRVD ---
OB - Vaginal Delivery Note Procedure Delivery date: 08/17/24 Events: Preeclampsia w/o severe features Induction method: Per Pitocin Protocol Delivery augmentation: Rupture of Membranes Delivery monitor: External FHT and External Uterine Route of delivery: Episiotomy description: None Laceration Description: None Specimen: Yes Quantitative Blood Loss (ml): 300 Anesthesia type: Epidural Disposition: Floor Complications: No immediate complications Narrative: Patient prepped and draped. Maternal expulsive efforts readily deliver vertex and rest baby delivered without difficulty. Placenta was delivered spontaneously. Cervix vagina vulva were inspected with no lacerations or tears. Uterus was well contracted with minimal bleeding. This point the procedure was considered terminated with immediate postoperative condition of mother and baby both excellent. [place]ade[place] Baby Gestational Age by Date: 39 gender: Male presentation: vertex Placenta delivery description: Spontaneous Cord Vessel Description: 3 Vessels
[2024-08-17] MEDS: OXYTOCIN 30 UNITS/NS 500 ML 30 UNITS/500 ML BAG 125 UNITS IV CONT (09:50)
--- NOTE | 2024-08-17 14:30 | PC.NURSE ---
Introductions were made, then consulted with patient to assess needs related to . Discussed with mother her?plans to feed?her and the?experience so far. Baby fed twice downstairs and mom states that it went well. She has a 17 month old at home that she breastfed. Requested patient call out for a latch check today. Resources provided for inpatient and outpatient services with the feeding sheet, mom/baby guide and name/number written on the communication board. Mother voiced understanding of information and will call if there is a request for assistance. Reported to the Primary RN.
[2024-08-17] MEDS: IBUPROFEN 600 MG TABLET PO (18:03)
--- NOTE | 2024-08-17 18:22 | PC.NURSE ---
Patient transferred to post room #287 via wheelchair. Support person present. Oriented to unit, room, information board, rooming in, admission packet and security measures. Patient verbalizes understanding.
[2024-08-17] MEDS: LABETALOL HCL 100 MG TABLET PO (20:09)
[2024-08-17] MEDS: BENZOCAINE 20% AER SPR (*SP) 56 GM CAN 1 SPRAY (20:10)
[2024-08-17] MEDS: WITCH HAZEL 40 PADS 1 PAD (20:11)
[2024-08-18 04:05] VITALS: BP 133/72; PULSE 63; RESP 16; TEMP 36.7; O2SAT 98
[2024-08-18 04:24] LABS: Hematocrit 32.5 % (37.0-47.0); Hemoglobin 10.7 g/dL (12.0-15.0)
[2024-08-18 07:30] VITALS: BP 120/91; PULSE 66; RESP 15; TEMP 36.6; O2SAT 98
--- NOTE | 2024-08-18 08:47 | PM.OBDSVD ---
DS: Admitting Diagnosis Discharge Date 08/18/2024 Admitting Diagnosis Preeclampsia without severe features DS: Discharge Diagnosis Discharge Diagnosis (1) , delivered: Code(s): O80 - Encounter for full-term uncomplicated delivery Status: Acute (2) Preeclampsia: Code(s): O14.90 - Unspecified pre-eclampsia, unspecified trimester Status: Acute OB - DS: Summary OB Procedures : None OB Procedures Intrapartum: Spontaneous Vag Delivery OB Procedures: : None Peripartum Data Laceration Description: None Episiotomy description: None Time Spent with Patient Time attestation: Total time spent providing and/or coordinating discharge services: DS: Data Data Completed and Pending Pending studies at discharge: Pending at discharge 08/17/24 09:41 Surgical [PTH] Routine Labs on day of discharge: Labs from last 24 hours 08/18/24 04:07 Hgb 10.7 L Hct 32.5 L Discharge Plan Discharge Discharging Clinician: Gael Erazo Activity: as tolerated Diet: as tolerated Patient Language: Qatari Follow-up/Referrals: Gael Erazo MD [Primary Care Provider] - 4 Weeks Discharge Medications: New labetalol 100 mg Tablet 100 mg PO Q12HR Qty: 30 1RF ibuprofen 600 mg Tablet 600 mg PO Q6H PRN (Reason: Cramping) Qty: 30 0RF Continued vit-iron fum-folic ac 65 mg iron- 1 mg tablet 1 tablet PO DAILY Date of admission: 08/16/24 20:00 Primary Care Provider: Gael Erazo Admitting Provider: Gael Erazo Attending physician on admission: Gael Erazo Condition: Stable
[2024-08-18 09:41] VITALS: PULSE 66
[2024-08-18] MEDS: MULTIVIT/MIN/PREN/FOL AC/IRON TABLET 1 TAB PO (09:41)
[2024-08-18] MEDS: LABETALOL HCL 100 MG TABLET PO (09:41)
--- NOTE | 2024-08-18 11:40 | PC.NURSE ---
Consulted with mother concerning needs and she shared her ability to independently latch infant optimally without pain. Mother demonstrated latching baby in football hold on the left side. Assisted with waking infant. He is sleepy due to recent circumcision. Mother is feeding appropriately for growth of and understands stimulating infant to eat if needed. has had appropriate feedings in the last 24 hours meets the outcomes for weight, output, blood sugar and jaundice at this time. Mother wants to be discharged at 24 hours so the physician is ordering supplementation after due to borderline bilirubin. Instructed parents that baby should eat 20-30ml of supplement after each . Mom started the bottle and baby took it well. Reinforced understanding of milk production, transition of milk, signs of adequate intake, transition of stool (helps lower bilirubin), prevention/relief of engorgement, plugged ducts, mastitis, responsive watching for feeding cues, the different methods of stimulating infant to breastfeed 1-3 hours after the start of the last feeding, community resources (declines [facility] referral), and when to call a provider using the resource of the feeding sheet along with the mom and baby guide. She has a breast pump at home. Mother voiced understanding of the information shared, is confident to continue effectively her infant at home, when to call for assistance, denies any additional assistance or education at this time. Reported to the Primary RN.
[2024-08-19 09:30] VITALS: BP 147/92; PULSE 77; RESP 18; TEMP 36.8; O2SAT 100
== END 2024-08-18 12:59 | disposition home or self-care (01) | DRG 807 ==
LOC: ANHLDR 20:02 → ANHOB2 08-17 13:53
PROVIDERS: Admitting Provider Obstetrics & Gynecology; PCP Obstetrics & Gynecology; Visit Provider Obstetrics & Gynecology
DX: O14.04 Mild to moderate pre-eclampsia, complicating childbirth (principal); Z37.0 Single live birth; Z3A.38 38 weeks gestation of pregnancy
CPT/HCPCS: 36415; 85014; 85018; 85025; 86593; 86703; 86850; 86900; 86901; 88307; A9270; G0432; J2590; J2795; J7120